=== PATIENT | male | born 1960 | race African-American/Black ===

== ENCOUNTER 2022-06-13 13:04 | Inpatient (IN) | payer MEDICAID ==
[~2022-06-13] VITALS: Ht 167.6 cm; Wt 79.8 kg
[2022-06-13] MEDS ORDERED: IOHEXOL-350 100 ML BOTTLE ONE (14:08)
[2022-06-13 14:56] LABS: HEMATOCRIT. 36.3 % (42.0-52.0); HEMOGLOBIN. 12.5 g/dL (14.0-18.0); LYMPHOCYTES % 36.4 % (20.0-50.0); MEAN CORPUSCULAR VOLUME 93.3 fL (80.0-94.0); MEAN PLATELET VOLUME 6.9 fl (7.4-10.4); MONOCYTES % 9.2 % (2.0-8.0); NEUTROPHILS % 49.4 % (40.0-76.0); PLATELET 213 x1000/uL (130-400); RED BLOOD CELL COUNT 3.89 mill/uL (4.7-6.1); RED CELL DISTRIBUTION WIDTH 14.4 % (11.6-14.6)
[2022-06-13 15:03] LABS: CHLORIDE 106 mEq/L (98-107)
[2022-06-13 15:08] LABS: INR 1.2; PROTHROMBIN TIME 12.8 sec (9.6-11.0)
[2022-06-13 15:14] LABS: ETHANOL BLOOD < 10 mg/dL
[2022-06-13 22:40] VITALS: BP 109/64
[2022-06-14] MEDS ORDERED: KEPPSOL PO (02:25)
[2022-06-14] MEDS ORDERED: ONDA4TAB50 PO (02:25)
[2022-06-14] MEDS ORDERED: THIA50TA12 PO (02:25)
[2022-06-14] MEDS ORDERED: ASCO-339 PO (02:25)
[2022-06-14] MEDS ORDERED: MULT-1318 (02:25)
[2022-06-14] MEDS ORDERED: PANT40TA51 PO (02:25)
[2022-06-14] MEDS ORDERED: CALC1POW MC (02:25)
[2022-06-14] MEDS ORDERED: TOPUD PO (02:25)
[2022-06-14] MEDS ORDERED: FOLI-43 PO (02:25)
[2022-06-14] MEDS ORDERED: FURO40TA5 PO (02:25)
[2022-06-14] MEDS ORDERED: AMIN30LI2 PO (02:25)
[2022-06-14] MEDS ORDERED: MIDO5TAB4 PO (02:25)
[2022-06-14] MEDS ORDERED: LORA10TA7 PO (02:25)
[2022-06-14 06:43] LABS: CHLORIDE 106 mEq/L (98-107)
[2022-06-14 06:46] LABS: BASOPHILS % 0.7 % (0.0-2.0); EOSINOPHILS % 3.6 % (0.0-5.0); HEMATOCRIT. 36.5 % (42.0-52.0); HEMOGLOBIN. 12.6 g/dL (14.0-18.0); LYMPHOCYTES % 34.5 % (20.0-50.0); MEAN CORPUSCULAR HEMOGLOBIN 32.5 pg (28.0-32.0); MEAN CORPUSCULAR VOLUME 93.9 fL (80.0-94.0); MEAN PLATELET VOLUME 7.2 fl (7.4-10.4); MONOCYTES % 8.2 % (2.0-8.0); PLATELET 222 x1000/uL (130-400); RED BLOOD CELL COUNT 3.89 mill/uL (4.7-6.1); RED CELL DISTRIBUTION WIDTH 14.4 % (11.6-14.6)
[2022-06-14 06:51] LABS: HDL CHOLESTEROL 52 mg/dL (40-59); LDL CHOLESTEROL 94 mg/dL (5-100)
[2022-06-14 08:00] VITALS: BP 99/66
[2022-06-14] MEDS ORDERED: FUROSEMIDE 40MG TABLET PO SCH (10:30)
[2022-06-14] MEDS ORDERED: ASCORBIC ACID 500 MG TABLET PO SCH (10:30)
[2022-06-14] MEDS ORDERED: PANTOPRAZOLE 40MG DR TABLET PO SCH (10:30)
[2022-06-14] MEDS ORDERED: FOLIC ACID 1MG TABLET PO SCH (10:30)
[2022-06-14] MEDS ORDERED: LORATADINE 10MG TABLET PO SCH (10:30)
[2022-06-14] MEDS: MIDODRINE HCL 5MG TABLET PO SCH ×3 (11:41→17:04)
[2022-06-14 12:00] VITALS: BP 121/74
[2022-06-14 16:00] VITALS: BP 109/96
[2022-06-14 19:18] VITALS: BP 109/65
[2022-06-14] MEDS ORDERED: LEVETIRACETAM 500MG/5ML CUP PO SCH (21:00)
== END 2022-06-14 20:14 | DRG 47 ==
LOC: ER 13:04 → 8WST 15:30
PROVIDERS: ADMIT Hospitalist; ATTEND Hospitalist
DX: G45.9 Transient cerebral ischemic attack, unspecified (principal); E44.1 Mild protein-calorie malnutrition; I10 Essential (primary) hypertension; R79.89 Other specified abnormal findings of blood chemistry; R27.0 Ataxia, unspecified; Z68.28 Body mass index [BMI] 28.0-28.9, adult; Z86.73 Personal history of transient ischemic attack (TIA), and cerebral infarction without residual deficits; Z82.49 Family history of ischemic heart disease and other diseases of the circulatory system
CPT/HCPCS: 36415; 70496; 70498; 70551; 71045; 80053; 80061; 80320; 84484; 85025; 87426; 93005; 93970; 97162; 99291; Q9967; G0480